=== PATIENT | male | born 1940 | race Asian ===

== ENCOUNTER 2020-10-28 12:41 | Inpatient (IN) | payer BC, SELFPAY ==
[~2020-10-28] VITALS: Ht 162.6 cm; Wt 57.6 kg
[2020-10-28 12:58] VITALS: Ht 162.6 cm; Wt 57.6 kg
[2020-10-28 14:12] LABS: BASOPHIL % 0.1 % (0.2-1.5); RED CELL DISTRIBUTION WIDTH 13.7 % (12.1-16.2)
[2020-10-28 14:24] LABS: PLATELET COUNT 52 x10^3mcL (152-348)
[2020-10-28 14:29] LABS: rbc morphology (normal/abnorm) NORMAL (NORMAL)
[2020-10-28 15:05] LABS: CALCIUM 8.2 mg/dL (8.5-10.1); CARBON DIOXIDE 26.2 mmol/L (21-32); CHLORIDE SERUM 100 mmol/L (98-107); CREATININE SERUM 1.1 mg/dL (0.7-1.3); GLUCOSE SERUM 269 mg/dL (74-106); SODIUM SERUM 133 mmol/L (136-145)
[2020-10-28 15:09] LABS: ALKALINE PHOSPHATASE 55 U/L (46-116); ALT/SGPT 28 U/L (16-63); AST/SGOT 33 U/L (15-37); BILIRUBIN TOTAL 1.06 mg/dL (0.20-1.00); LACTIC DEHYDROGENASE (LDH) 365 U/L (100-190); TOTAL PROTEIN, SERUM 6.5 g/dL (6.4-8.2)
[2020-10-28 15:11] LABS: C REACTIVE PROTEIN 16.4 mg/dL (<=0.9)
[2020-10-28 15:57] LABS: UA SPECIFIC GRAVITY 1.025 (1.005-1.035); microscopic required? YES; urine erythrocyte TRACE (NEGATIVE)
[2020-10-28] MEDS ORDERED: [UNRECOGNIZED DRUG - OTHER] (16:30)
[2020-10-28] MEDS ORDERED: CUTIVATE0.05% (16:30)
[2020-10-28] MEDS ORDERED: [UNRECOGNIZED DRUG - OTHER] (16:31)
[2020-10-28] MEDS ORDERED: MILLIPRED5 M1 PO (16:32)
[2020-10-28] MEDS ORDERED: COZAAR25 M1 (16:32)
[2020-10-28] MEDS ORDERED: ISOSORBIDE DINI30 M2 (16:33)
[2020-10-28] MEDS ORDERED: TAMSULOSIN HCL0.4 MG PO (16:33)
[2020-10-28] MEDS ORDERED: OCU (16:33)
[2020-10-28] MEDS ORDERED: [UNRECOGNIZED DRUG - OTHER] (16:34)
[2020-10-28] MEDS ORDERED: MAGNESIUM250 M1 PO (16:34)
[2020-10-28] MEDS ORDERED: 24HR ALLERGY REL5 MG PO (16:35)
[2020-10-28] MEDS ORDERED: CARDURA XL4 MG PO (16:35)
[2020-10-29 02:01] VITALS: BP 160/83
[2020-10-29 04:58] VITALS: BP 126/90
[2020-10-29 08:35] LABS: BASOPHIL % 0.2 % (0.2-1.5)
[2020-10-29 08:56] LABS: ALKALINE PHOSPHATASE 54 U/L (46-116); ALT/SGPT 26 U/L (16-63); AST/SGOT 37 U/L (15-37); BILIRUBIN TOTAL 0.88 mg/dL (0.20-1.00); CALCIUM 8.5 mg/dL (8.5-10.1); CARBON DIOXIDE 28.1 mmol/L (21-32); CHLORIDE SERUM 100 mmol/L (98-107); GLUCOSE SERUM 203 mg/dL (74-106); MAGNESIUM 2.4 mg/dL (1.8-2.4); PHOSPHOROUS 2.9 mg/dL (2.5-4.9); POTASSIUM SERUM 4.2 mmol/L (3.5-5.1); SODIUM SERUM 137 mmol/L (136-145); TOTAL PROTEIN, SERUM 6.6 g/dL (6.4-8.2)
[2020-10-29 08:59] LABS: ALBUMIN 2.9 g/dL (3.4-5.0); C REACTIVE PROTEIN 23.7 mg/dL (<=0.9)
[2020-10-29 09:18] VITALS: BP 172/96
[2020-10-29 10:35] LABS: PLATELET COUNT 73 x10^3mcL (152-348)
[2020-10-29 12:16] VITALS: BP 132/86
[2020-10-29 16:07] LABS: rbc morphology (normal/abnorm) NORMAL (NORMAL)
[2020-10-29 16:49] VITALS: BP 144/83
[2020-10-30 05:14] VITALS: BP 114/68
[2020-10-30 08:43] VITALS: BP 151/93
[2020-10-30 08:44] LABS: C REACTIVE PROTEIN 11.8 mg/dL (<=0.9); CALCIUM 8.9 mg/dL (8.5-10.1); CARBON DIOXIDE 25.1 mmol/L (21-32); CHLORIDE SERUM 100 mmol/L (98-107); CREATININE SERUM 1.1 mg/dL (0.7-1.3); GLUCOSE SERUM 152 mg/dL (74-106); MAGNESIUM 2.4 mg/dL (1.8-2.4); PHOSPHOROUS 3.7 mg/dL (2.5-4.9); POTASSIUM SERUM 4.2 mmol/L (3.5-5.1); SODIUM SERUM 138 mmol/L (136-145)
[2020-10-30 08:59] LABS: BILIRUBIN DIRECT 0.65 mg/dL (0.0-0.2); BILIRUBIN TOTAL 1.3 mg/dL (0.20-1.00); TOTAL PROTEIN, SERUM 6.8 g/dL (6.4-8.2)
[2020-10-30 09:13] LABS: ALBUMIN 3.3 g/dL (3.4-5.0)
[2020-10-30 09:40] LABS: BASOPHIL % 0 % (0.2-1.5); PLATELET COUNT 125 x10^3mcL (152-348)
[2020-10-30 09:41] LABS: rbc morphology (normal/abnorm) NORMAL (NORMAL)
[2020-10-30 12:31] VITALS: BP 139/90
[2020-10-30 16:26] VITALS: BP 100/72
[2020-10-30 20:08] VITALS: BP 129/83
[2020-10-31 04:48] VITALS: BP 131/85
[2020-10-31 07:32] LABS: BASOPHIL % 0.1 % (0.2-1.5); PLATELET COUNT 139 x10^3mcL (152-348); RED CELL DISTRIBUTION WIDTH 14.3 % (12.1-16.2)
[2020-10-31 07:35] LABS: CALCIUM 8.6 mg/dL (8.5-10.1); CARBON DIOXIDE 27.1 mmol/L (21-32); CHLORIDE SERUM 103 mmol/L (98-107); CREATININE SERUM 1.1 mg/dL (0.7-1.3); GLUCOSE SERUM 114 mg/dL (74-106); MAGNESIUM 2.6 mg/dL (1.8-2.4); PHOSPHOROUS 4.2 mg/dL (2.5-4.9); POTASSIUM SERUM 4.2 mmol/L (3.5-5.1); SODIUM SERUM 142 mmol/L (136-145)
[2020-10-31 07:59] LABS: BILIRUBIN DIRECT 0.67 mg/dL (0.0-0.2); BILIRUBIN TOTAL 1.4 mg/dL (0.20-1.00); TOTAL PROTEIN, SERUM 6.2 g/dL (6.4-8.2)
[2020-10-31 08:21] LABS: ALBUMIN 3.1 g/dL (3.4-5.0)
[2020-10-31 09:36] VITALS: BP 138/84
[2020-10-31 13:38] LABS: rbc morphology (normal/abnorm) NORMAL (NORMAL)
[2020-10-31 16:45] VITALS: BP 106/72
[2020-11-01 06:02] VITALS: BP 136/79
[2020-11-01 08:15] VITALS: BP 150/86
[2020-11-01 09:22] LABS: BASOPHIL % 0.1 % (0.2-1.5); PLATELET COUNT 166 x10^3mcL (152-348); RED CELL DISTRIBUTION WIDTH 14.5 % (12.1-16.2)
[2020-11-01 09:34] LABS: CALCIUM 8.6 mg/dL (8.5-10.1); CARBON DIOXIDE 26.9 mmol/L (21-32); CHLORIDE SERUM 107 mmol/L (98-107); GLUCOSE SERUM 105 mg/dL (74-106); POTASSIUM SERUM 4.2 mmol/L (3.5-5.1); SODIUM SERUM 144 mmol/L (136-145)
[2020-11-01 09:54] LABS: BILIRUBIN DIRECT 0.73 mg/dL (0.0-0.2); BILIRUBIN TOTAL 1.41 mg/dL (0.20-1.00); TOTAL PROTEIN, SERUM 6.2 g/dL (6.4-8.2)
[2020-11-01 13:03] VITALS: BP 155/89
[2020-11-01 17:15] VITALS: BP 124/79
[2020-11-01 21:41] VITALS: BP 104/53
[2020-11-02 04:56] VITALS: BP 101/68
[2020-11-02 07:32] LABS: BASOPHIL % 0.1 % (0.2-1.5); PLATELET COUNT 152 x10^3mcL (152-348); RED CELL DISTRIBUTION WIDTH 14.3 % (12.1-16.2)
[2020-11-02 08:53] LABS: CALCIUM 8.8 mg/dL (8.5-10.1); CARBON DIOXIDE 24.9 mmol/L (21-32); CHLORIDE SERUM 105 mmol/L (98-107); CREATININE SERUM 0.9 mg/dL (0.7-1.3); GLUCOSE SERUM 160 mg/dL (74-106); MAGNESIUM 2.8 mg/dL (1.8-2.4); POTASSIUM SERUM 4.8 mmol/L (3.5-5.1); SODIUM SERUM 140 mmol/L (136-145)
[2020-11-02 09:01] VITALS: BP 148/79
[2020-11-02 16:19] VITALS: BP 117/67
[2020-11-02 22:45] LABS: rbc morphology (normal/abnorm) NORMAL (NORMAL)
[2020-11-02 23:08] VITALS: BP 116/74
[2020-11-03 06:55] VITALS: BP 117/73
[2020-11-03 08:38] VITALS: BP 115/69
[2020-11-03 12:11] VITALS: BP 121/70
[2020-11-03 16:35] VITALS: BP 129/93
[2020-11-03 20:09] LABS: BASOPHIL % 0.1 % (0.2-1.5); PLATELET COUNT 153 x10^3mcL (152-348); RED CELL DISTRIBUTION WIDTH 14.4 % (12.1-16.2)
[2020-11-03 20:22] LABS: CALCIUM 8.7 mg/dL (8.5-10.1); CARBON DIOXIDE 29.2 mmol/L (21-32); CHLORIDE SERUM 102 mmol/L (98-107); CREATININE SERUM 0.8 mg/dL (0.7-1.3); GLUCOSE SERUM 161 mg/dL (74-106); POTASSIUM SERUM 4.5 mmol/L (3.5-5.1); SODIUM SERUM 138 mmol/L (136-145)
[2020-11-03 22:17] LABS: rbc morphology (normal/abnorm) NORMAL (NORMAL)
[2020-11-03 22:21] VITALS: BP 122/64
[2020-11-04 06:46] VITALS: BP 125/54
[2020-11-04 08:26] VITALS: BP 122/74
[2020-11-04 16:30] VITALS: BP 102/69
[2020-11-04 21:01] VITALS: BP 101/60
[2020-11-05 06:31] VITALS: BP 122/70
[2020-11-05 08:42] LABS: BASOPHIL % 0.1 % (0.2-1.5); PLATELET COUNT 165 x10^3mcL (152-348); RED CELL DISTRIBUTION WIDTH 13.7 % (12.1-16.2)
[2020-11-05 08:52] LABS: CALCIUM 8.5 mg/dL (8.5-10.1); CARBON DIOXIDE 29.6 mmol/L (21-32); CHLORIDE SERUM 103 mmol/L (98-107); CREATININE SERUM 0.6 mg/dL (0.7-1.3); GLUCOSE SERUM 97 mg/dL (74-106); POTASSIUM SERUM 4.2 mmol/L (3.5-5.1); SODIUM SERUM 138 mmol/L (136-145)
[2020-11-05 09:32] VITALS: BP 141/71
[2020-11-05 13:02] VITALS: BP 99/68
[2020-11-05 16:41] VITALS: BP 96/58
[2020-11-05 22:48] VITALS: BP 133/39
[2020-11-06 06:08] VITALS: BP 123/81
[2020-11-06 07:20] LABS: BASOPHIL % 0.1 % (0.2-1.5); PLATELET COUNT 170 x10^3mcL (152-348); RED CELL DISTRIBUTION WIDTH 13.6 % (12.1-16.2)
[2020-11-06 07:51] LABS: CALCIUM 8.7 mg/dL (8.5-10.1); CARBON DIOXIDE 30.5 mmol/L (21-32); CHLORIDE SERUM 102 mmol/L (98-107); CREATININE SERUM 0.6 mg/dL (0.7-1.3); GLUCOSE SERUM 87 mg/dL (74-106); SODIUM SERUM 137 mmol/L (136-145)
[2020-11-06 08:39] VITALS: BP 124/70
[2020-11-06 08:51] LABS: rbc morphology (normal/abnorm) NORMAL (NORMAL)
[2020-11-06 12:00] VITALS: BP 114/67
[2020-11-06 16:44] VITALS: BP 101/53
[2020-11-06 21:59] VITALS: BP 121/59
[2020-11-07 05:52] VITALS: BP 130/69
[2020-11-07 07:53] VITALS: BP 107/59
[2020-11-07 11:29] VITALS: BP 107/66
[2020-11-07 15:58] VITALS: BP 103/66
[2020-11-07 20:29] VITALS: BP 108/74
[2020-11-08 04:46] VITALS: BP 119/59
[2020-11-08 07:59] LABS: BASOPHIL % 0.1 % (0.2-1.5); PLATELET COUNT 173 x10^3mcL (152-348); RED CELL DISTRIBUTION WIDTH 13.7 % (12.1-16.2)
[2020-11-08 08:27] LABS: rbc morphology (normal/abnorm) NORMAL (NORMAL)
[2020-11-08 09:05] LABS: CALCIUM 9.2 mg/dL (8.5-10.1); CARBON DIOXIDE 28.6 mmol/L (21-32); CHLORIDE SERUM 99 mmol/L (98-107); CREATININE SERUM 0.6 mg/dL (0.7-1.3); GLUCOSE SERUM 167 mg/dL (74-106); POTASSIUM SERUM 4.5 mmol/L (3.5-5.1); SODIUM SERUM 134 mmol/L (136-145)
[2020-11-08 09:22] VITALS: BP 101/56
[2020-11-08 13:44] VITALS: BP 97/57
[2020-11-08 17:00] VITALS: BP 98/55
[2020-11-08 20:10] VITALS: BP 104/62
[2020-11-09 06:00] VITALS: BP 100/62
[2020-11-09 08:47] VITALS: BP 100/61
[2020-11-09 11:23] VITALS: BP 123/62
[2020-11-09 17:54] VITALS: BP 108/68
[2020-11-09 21:17] VITALS: BP 112/62
[2020-11-10 05:01] VITALS: BP 121/75
[2020-11-10 08:46] VITALS: BP 102/51
[2020-11-10 08:58] LABS: CALCIUM 9.1 mg/dL (8.5-10.1); CARBON DIOXIDE 32.6 mmol/L (21-32); CHLORIDE SERUM 100 mmol/L (98-107); CREATININE SERUM 0.8 mg/dL (0.7-1.3); GLUCOSE SERUM 177 mg/dL (74-106); POTASSIUM SERUM 3.9 mmol/L (3.5-5.1); SODIUM SERUM 137 mmol/L (136-145)
[2020-11-10 09:12] LABS: PLATELET COUNT 192 x10^3mcL (130-400); RED CELL DISTRIBUTION WIDTH 13.4 % (11.5-14.5)
[2020-11-10 09:13] LABS: BASOPHIL % 0.1 % (0-2)
[2020-11-10 16:04] VITALS: BP 113/68
[2020-11-10 20:00] VITALS: BP 117/61
[2020-11-11 05:33] VITALS: BP 138/71
[2020-11-11 09:10] VITALS: BP 118/61
[2020-11-11 09:15] VITALS: BP 95/71
[2020-11-11 13:08] VITALS: BP 102/59
[2020-11-11 13:59] LABS: BASOPHIL % 0.4 % (0.2-1.5); PLATELET COUNT 189 x10^3mcL (152-348); RED CELL DISTRIBUTION WIDTH 13.7 % (12.1-16.2)
[2020-11-11 15:26] LABS: C REACTIVE PROTEIN 0.4 mg/dL (<=0.9); CARBON DIOXIDE 29.7 mmol/L (21-32); CHLORIDE SERUM 100 mmol/L (98-107); CREATININE SERUM 0.6 mg/dL (0.7-1.3); GLUCOSE SERUM 229 mg/dL (74-106); POTASSIUM SERUM 4.5 mmol/L (3.5-5.1); SODIUM SERUM 134 mmol/L (136-145)
[2020-11-11 16:08] VITALS: BP 95/59
[2020-11-11 23:15] VITALS: BP 117/71
[2020-11-12 05:42] VITALS: BP 90/49
[2020-11-12 10:10] LABS: BASOPHIL % 0.1 % (0.2-1.5); PLATELET COUNT 187 x10^3mcL (152-348); RED CELL DISTRIBUTION WIDTH 13.6 % (12.1-16.2)
[2020-11-12 10:22] LABS: C REACTIVE PROTEIN 0.3 mg/dL (<=0.9); CARBON DIOXIDE 30.2 mmol/L (21-32); CHLORIDE SERUM 102 mmol/L (98-107); CREATININE SERUM 0.5 mg/dL (0.7-1.3); GLUCOSE SERUM 89 mg/dL (74-106); POTASSIUM SERUM 4.2 mmol/L (3.5-5.1); SODIUM SERUM 137 mmol/L (136-145)
[2020-11-12 11:56] VITALS: BP 98/53
[2020-11-12 12:17] VITALS: BP 87/44; BP 98/53
[2020-11-12 18:36] VITALS: BP 102/57
[2020-11-12 20:20] VITALS: BP 94/61
[2020-11-13 06:15] VITALS: BP 102/56
[2020-11-13 07:07] LABS: BASOPHIL % 0.1 % (0.2-1.5); PLATELET COUNT 156 x10^3mcL (152-348); RED CELL DISTRIBUTION WIDTH 13.7 % (12.1-16.2)
[2020-11-13 08:02] LABS: CALCIUM 8.8 mg/dL (8.5-10.1); CHLORIDE SERUM 100 mmol/L (98-107); CREATININE SERUM 0.7 mg/dL (0.7-1.3); GLUCOSE SERUM 231 mg/dL (74-106); POTASSIUM SERUM 4.1 mmol/L (3.5-5.1); SODIUM SERUM 135 mmol/L (136-145)
[2020-11-13 10:12] VITALS: BP 88/52
[2020-11-13 14:15] VITALS: BP 108/60
[2020-11-13 16:45] VITALS: BP 99/56
[2020-11-13 20:15] VITALS: BP 91/61
[2020-11-14 06:16] VITALS: BP 103/68
[2020-11-14] MEDS ORDERED: LOP50 PO (09:19)
[2020-11-14] MEDS ORDERED: COZ25 PO (09:19)
[2020-11-14] MEDS ORDERED: APR25 PO (09:19)
[2020-11-14] MEDS ORDERED: ELIQUIS2.5 MG PO (09:19)
[2020-11-14] MEDS ORDERED: ZINC SULFATE220 MG PO (09:20)
[2020-11-14] MEDS ORDERED: MUCINEX600 MG PO (09:20)
[2020-11-14] MEDS ORDERED: D-10001 TAB PO (09:20)
[2020-11-14] MEDS ORDERED: VITC PO (09:20)
[2020-11-14] MEDS ORDERED: DECADRON6 MG PO (09:21)
[2020-11-14 09:58] VITALS: BP 114/64
[2020-11-14 10:53] VITALS: BP 108/56
== END 2020-11-14 13:05 | disposition home health service (06) | DRG 871 ==
LOC: ED 12:41 → DU 16:35
PROVIDERS: Emergency Medicine; Family Medicine; Internal Medicine; ADMIT Internal Medicine; ATTEND Internal Medicine
PROC: XW033E5 Introduction of Remdesivir Anti-infective into Peripheral Vein, Percutaneous Approach, New Technology Group 5 (ICD-10-PCS; 2020-10-28)
PROC: XW13325 Transfusion of Convalescent Plasma (Nonautologous) into Peripheral Vein, Percutaneous Approach, New Technology Group 5 (ICD-10-PCS; principal; 2020-10-29)
PROC: 02HV33Z Insertion of Infusion Device into Superior Vena Cava, Percutaneous Approach (ICD-10-PCS; 2020-11-04)
DX: A41.89 Other specified sepsis (principal); U07.1 COVID-19; J96.00 Acute respiratory failure, unspecified whether with hypoxia or hypercapnia; J12.82 Pneumonia due to coronavirus disease 2019; J44.1 Chronic obstructive pulmonary disease with (acute) exacerbation; J44.0 Chronic obstructive pulmonary disease with (acute) lower respiratory infection; I10 Essential (primary) hypertension; E11.9 Type 2 diabetes mellitus without complications; N40.0 Benign prostatic hyperplasia without lower urinary tract symptoms; D69.6 Thrombocytopenia, unspecified; I48.0 Paroxysmal atrial fibrillation; Z79.899 Other long term (current) drug therapy; Z79.891 Long term (current) use of opiate analgesic; Z79.01 Long term (current) use of anticoagulants; Z79.84 Long term (current) use of oral hypoglycemic drugs
CPT/HCPCS: 36600; 82962; 83880; 85378; 87804; 97110-GP; 97116-GP; G0378; J0696; J1100; J1815; J1940; J7030; J7040; J7060; U0003